=== PATIENT | female | born 1965 ===

== ENCOUNTER 2020-04-09 11:36 | Emergency (ER) | payer OTHER ==
[~2020-04-09] VITALS: Ht 162.6 cm; Wt 94.3 kg
[~2020-04-09 11:36] MED LIST: ALLEGRA ALLERG180 MG PO; ARIMIDEX PO; DEMEBORO OTIC; FLONASE16 GM NS; GILTUSS LIQUID237 M1; GILTUSS TR TAB1 EACH PO; PYRIDIUM200 MG PO; ZITHROMAX500 MG
[2020-04-09] MEDS ORDERED: LEVAQUIN750 MG PO (16:45)
== END 2020-04-09 16:57 | disposition home or self-care (01) ==
LOC: ER 11:36
DX: N39.0 Urinary tract infection, site not specified (principal); R10.31 Right lower quadrant pain